=== PATIENT | female | born 1965 | race African-American/Black ===

== ENCOUNTER 2017-05-12 21:01 | Inpatient (IN) | payer BC, OTHER ==
[~2017-05-12] VITALS: Ht 170.2 cm; Wt 93.9 kg
[2017-05-12] MEDS ORDERED: MORPHINE SULFATE 4 MG/ML CPJ (NOT FOR IM USE) IV STA (23:24)
[2017-05-12] MEDS ORDERED: ONDANSETRON HCL 4MG/2ML VIAL IV STA (23:24)
[2017-05-12 23:58] LABS: BASOPHILS % 0.9 % (0.0-2.0); EOSINOPHILS % 2.2 % (0.0-5.0); HEMATOCRIT. 35.3 % (36.0-48.0); HEMOGLOBIN. 11.8 g/dL (12.0-16.0); MEAN CORPUSCULAR HEMOGLOBIN 28.1 pg (28.0-32.0); MEAN CORPUSCULAR VOLUME 84.4 fL (81.0-99.0); MEAN PLATELET VOLUME 8.2 fl (7.4-10.4); MONOCYTES % 5.5 % (2.0-8.0); NEUTROPHILS % 67.4 % (40.0-76.0); PLATELET 197 x1000/uL (130-400); RED BLOOD CELL COUNT 4.18 mill/uL (4.2-5.4); RED CELL DISTRIBUTION WIDTH 14.7 % (11.6-14.6)
[2017-05-13 00:09] LABS: CARBON DIOXIDE 25 mEq/L (21-32); CHLORIDE 108 mEq/L (98-107); TROPONIN I < 0.02 ng/mL (0.00-0.04)
[2017-05-13] MEDS ORDERED: SODIUM CHLORIDE 0.9% 1,000 ML IV SCH (00:41)
[2017-05-13 02:30] VITALS: BP 145/76
[2017-05-13] MEDS ORDERED: SODIUM CHLORIDE 0.45% 1,000 ML IV SCH (03:20)
[2017-05-13] MEDS ORDERED: FLUT1DIS3 IH (03:22)
[2017-05-13] MEDS ORDERED: ALBU90AE IH (03:22)
[2017-05-13] MEDS ORDERED: GUAIFENESIN 200MG/10ML SUGAR FREE UDC PO PRN (03:30)
[2017-05-13] MEDS ORDERED: MAGNESIUM/ALUMINUM HYDROXIDE/SIMETHICONE 30ML UDC PO PRN (03:30)
[2017-05-13] MEDS ORDERED: ONDANSETRON HCL 4MG/2ML VIAL IV PRN (03:30)
[2017-05-13] MEDS ORDERED: HYDROMORPHONE HCL/PF 2MG/ML CPJ IV PRN (03:30)
[2017-05-13] MEDS ORDERED: NA PHOS,M-B/NA PHOS,DI-BA ENEMA 118ML PR PRN (03:30)
[2017-05-13] MEDS ORDERED: ACETAMINOPHEN 325MG TABLET PO PRN (03:30)
[2017-05-13] MEDS ORDERED: CLONIDINE 0.1MG TABLET PO PRN (03:30)
[2017-05-13] MEDS ORDERED: DOCUSATE SODIUM 100MG CAPSULE PO PRN (03:30)
[2017-05-13] MEDS ORDERED: LORAZEPAM 2MG/ML CPJ IV PRN (03:30)
[2017-05-13] MEDS ORDERED: HYDROCODONE/ACETAMINOPHEN 5/325MG TABLET PO PRN (03:30)
[2017-05-13] MEDS ORDERED: IPRATROPIUM/ALBUTEROL 0.5-3(2.5)MG/3ML NEB INH PRN (03:30)
[2017-05-13] MEDS ORDERED: DIPHENHYDRAMINE 50MG/ML VIAL IV PRN (03:30)
[2017-05-13 04:00] VITALS: BP 119/76
[2017-05-13] MEDS ORDERED: MEDICATION NOT ON FORMULARY EA (Albuterol Sulfate (Proair Respiclick) 90 MCG) IH SCH (04:00)
[2017-05-13] MEDS ORDERED: MEDICATION NOT ON FORMULARY EA (Fluticasone/Salmeterol (Advair 250-50 Diskus) 1 EACH) IH SCH (04:00)
[2017-05-13] MEDS ORDERED: ALBUTEROL (0.083%) 2.5MG/3ML NEB HHN SCH (06:00)
[2017-05-13 07:38] LABS: CARBON DIOXIDE 23 mEq/L (21-32); CHLORIDE 109 mEq/L (98-107); TROPONIN I < 0.02 ng/mL (0.00-0.04)
[2017-05-13 08:00] VITALS: BP 113/84
[2017-05-13] MEDS: SODIUM CHLORIDE 0.9% 1,000 ML IV SCH (11:06)
[2017-05-13 12:00] VITALS: BP 144/96
[2017-05-13] MEDS: BUDESONIDE 0.5MG/2ML NEB HHN SCH ×3 (13:30→21:30)
[2017-05-13 15:51] LABS: *AMPHETAMINES SCREEN URINE NEGATIVE (NEGATIVE); *BARBITURATES SCREEN URINE NEGATIVE (NEGATIVE); *BENZODIAZEPINES SCREEN URINE NEGATIVE (NEGATIVE); *COCAINE SCREEN URINE NEGATIVE (NEGATIVE); CANNABINOID URINE SCREEN NEGATIVE (NEGATIVE); METHADONE URINE SCREEN NEGATIVE (NEGATIVE); OPIATES URINE SCREEN NEGATIVE (NEGATIVE); PHENCYCLIDINE URINE SCREEN NEGATIVE (NEGATIVE)
[2017-05-13 16:02] VITALS: BP 134/71
[2017-05-13 16:10] LABS: CREATINE KINASE 102 IU/L (26-192); TROPONIN I < 0.02 ng/mL (0.00-0.04)
[2017-05-13 20:00] VITALS: BP 108/72
[2017-05-14] VITALS: BP 119/77
[2017-05-14] MEDS: SODIUM CHLORIDE 0.9% 1,000 ML IV SCH (00:01)
[2017-05-14 00:13] LABS: CREATINE KINASE MB FRACTION 1.5 ng/mL (0.5-3.6)
[2017-05-14 04:00] VITALS: BP 117/79
[2017-05-14 06:02] LABS: BASOPHILS % 0.7 % (0.0-2.0); EOSINOPHILS % 2.8 % (0.0-5.0); HEMATOCRIT. 34.3 % (36.0-48.0); HEMOGLOBIN. 11.3 g/dL (12.0-16.0); LYMPHOCYTES % 44.3 % (20.0-50.0); MEAN CORPUSCULAR HEMOGLOBIN 27.8 pg (28.0-32.0); MEAN CORPUSCULAR VOLUME 84.6 fL (81.0-99.0); MEAN PLATELET VOLUME 8.3 fl (7.4-10.4); MONOCYTES % 4.9 % (2.0-8.0); NEUTROPHILS % 47.3 % (40.0-76.0); PLATELET 198 x1000/uL (130-400); RED BLOOD CELL COUNT 4.06 mill/uL (4.2-5.4); RED CELL DISTRIBUTION WIDTH 15.2 % (11.6-14.6)
[2017-05-14 07:01] LABS: CARBON DIOXIDE 26 mEq/L (21-32); CREATINE KINASE 98 IU/L (26-192); CREATINE KINASE MB FRACTION 1.3 ng/mL (0.5-3.6); HDL CHOLESTEROL 75 mg/dL (40-59)
[2017-05-14 07:04] LABS: LDL CHOLESTEROL 94 mg/dL (5-100)
[2017-05-14 07:58] LABS: CHLORIDE 113 mEq/L (98-107)
[2017-05-14 10:03] VITALS: BP 117/74
== END 2017-05-14 10:40 | disposition home or self-care (01) | DRG 312 ==
LOC: ER 21:10 → 6WST 05-13 00:43 → ENRESERV 05-13 01:22 → 6WST 05-13 02:25
PROVIDERS: ADMIT Internal Medicine; ATTEND Internal Medicine
DX: R55 Syncope and collapse (principal); G93.41 Metabolic encephalopathy; E78.5 Hyperlipidemia, unspecified; J45.909 Unspecified asthma, uncomplicated; I10 Essential (primary) hypertension; Z79.899 Other long term (current) drug therapy; Z88.1 Allergy status to other antibiotic agents; Z88.0 Allergy status to penicillin; Z88.2 Allergy status to sulfonamides
CPT/HCPCS: 36415; 70450; 71010; 80048; 80053; 80061; 80305; 82550; 82553; 83036; 83880; 84439; 84443; 84484; 85025; 85379; 93005; 93306; 93970; 94664; 96360; 99285; J7030; J7611; J7626

== ENCOUNTER 2021-03-15 01:31 | Emergency (ER) | payer BC ==
[~2021-03-15] VITALS: Ht 175.3 cm; Wt 100.0 kg
[~2021-03-15 01:31] MED LIST: ALBU90AE IH; FLUT1DIS3 IH
[2021-03-15 03:53] LABS: BASOPHILS % 0.5 % (0.0-2.0); EOSINOPHILS % 0.3 % (0.0-5.0); HEMATOCRIT. 34.9 % (36.0-48.0); HEMOGLOBIN. 11.4 g/dL (12.0-16.0); LYMPHOCYTES % 25.6 % (20.0-50.0); MEAN CORPUSCULAR HEMOGLOBIN 26.5 pg (28.0-32.0); MEAN CORPUSCULAR VOLUME 80.9 fL (81.0-99.0); MEAN PLATELET VOLUME 7.8 fl (7.4-10.4); MONOCYTES % 6.1 % (2.0-8.0); NEUTROPHILS % 67.5 % (40.0-76.0); PLATELET 252 x1000/uL (130-400); RED BLOOD CELL COUNT 4.31 mill/uL (4.2-5.4); RED CELL DISTRIBUTION WIDTH 15.5 % (11.6-14.6)
[2021-03-15 03:59] LABS: CHLORIDE 106 mEq/L (98-107)
[2021-03-15] MEDS ORDERED: PREDNISONE 20MG TABLET PO ONE (04:30)
[2021-03-15] MEDS ORDERED: IPRATROPIUM/ALBUTEROL 0.5-3(2.5)MG/3ML NEB HHN ONE (04:30)
[2021-03-15] MEDS ORDERED: DOXY100C2 MT (05:18)
[2021-03-15 06:08] VITALS: BP 123/75
== END 2021-03-15 06:12 | disposition home or self-care (01) ==
LOC: ER 01:31
DX: J40 Bronchitis, not specified as acute or chronic (principal); R00.0 Tachycardia, unspecified; Z20.822 Contact with and (suspected) exposure to COVID-19; R03.0 Elevated blood-pressure reading, without diagnosis of hypertension; Z88.1 Allergy status to other antibiotic agents; Z88.0 Allergy status to penicillin; Z88.8 Allergy status to other drugs, medicaments and biological substances
CPT/HCPCS: 36415; 71045; 80053; 83880; 84484; 85025; 87426; 93005; 99285; J7512

== ENCOUNTER 2023-04-23 06:05 | Emergency (ER) | payer BC ==
[~2023-04-23] VITALS: Ht 172.7 cm; Wt 80.0 kg
[~2023-04-23 06:05] MED LIST changes: +DOXY100C5 MT
[2023-04-23 06:08] VITALS: O2SAT 98
[2023-04-23] MEDS ORDERED: ACETAMINOPHEN 325MG TABLET PO STA (07:15)
[2023-04-23] MEDS ORDERED: PREDNISONE 20MG TABLET PO ONE (07:15)
[2023-04-23 07:41] LABS: BASOPHILS % 0.3 % (0.0-2.0); EOSINOPHILS % 1.2 % (0.0-5.0); HEMATOCRIT. 37.2 % (36.0-48.0); HEMOGLOBIN. 12.2 g/dL (12.0-16.0); LYMPHOCYTES % 30.8 % (20.0-50.0); MEAN CORPUSCULAR HEMOGLOBIN 26.6 pg (28.0-32.0); MEAN CORPUSCULAR HGB CONC 32.7 g/dL (31.0-37.0); MEAN CORPUSCULAR VOLUME 81.2 fL (81.0-99.0); MONOCYTES % 4.7 % (2.0-8.0); PLATELET 205 x1000/uL (130-400); RED BLOOD CELL COUNT 4.58 mill/uL (4.2-5.4); RED CELL DISTRIBUTION WIDTH 15.3 % (11.6-14.6); WHITE BLOOD COUNT 5.3 x1000/uL (4.5-11.0)
[2023-04-23 08:02] LABS: CHLORIDE 108 mEq/L (98-107); INDEX HEMOLYSI 2 (1-3); INDEX ICTERIC 1 (1-4); INDEX LIPEMIC 1 (1-3); POTASSIUM 3.4 mEq/L (3.5-5.1); SODIUM 141 mEq/L (136-145)
[2023-04-23 08:13] LABS: ALANINE AMINOTRANSFERASE 21 IU/L (13-61); ALBUMIN 3.7 g/dL (3.4-5.0); ASPARTATE AMINOTRANSFERASE 18 IU/L (15-37); BILIRUBIN TOTAL 0.2 mg/dL (0.1-1.0); CALCIUM 8.8 mg/dL (8.5-10.1); CARBON DIOXIDE 25 mEq/L (21-32); CREATININE 0.7 mg/dL (0.6-1.3); GLUCOSE 114 mg/dL (70-105); PROTEIN TOTAL 8.5 g/dL (6.0-8.3); TROPONIN I HIGH SENSITIVITY 4 ng/L (<54); UREA NITROGEN BLOOD 16 mg/dL (7-21)
[2023-04-23 09:14] LABS: PROTHROMBIN TIME 10.3 sec (9.6-11.0)
[2023-04-23] MEDS ORDERED: ACETAMINOPHEN 325MG TABLET PO NR (09:30)
[2023-04-23] MEDS: PREDNISONE 20MG TABLET PO NR ×2 (09:35→09:50)
[2023-04-23] MEDS ORDERED: ALBU6.7H15 INH (09:57)
[2023-04-23] MEDS ORDERED: P20 MT (09:57)
[2023-04-23] MEDS ORDERED: ALBU05 NEB (09:57)
[2023-04-23 10:25] VITALS: BP 132/75; PULSE 107; RESP 18; TEMP 98.2
== END 2023-04-23 10:25 | disposition home or self-care (01) ==
LOC: ER 06:05
DX: J45.901 Unspecified asthma with (acute) exacerbation (principal); Z88.0 Allergy status to penicillin; Z88.1 Allergy status to other antibiotic agents; Z88.2 Allergy status to sulfonamides
CPT/HCPCS: 80053; 85025; 85610; 84484; 36415; 71045; 93005; 99285; J7512; Z7610